=== PATIENT | female | born 1965 ===

== ENCOUNTER → 2023-07-06 | Outpatient (CLI) | payer BC ==
[~2023-07-06] MED LIST: PERCOCET 325 MG1 TA2 PO
[2023-07-06 16:40] LABS: HEMOGLOBIN 11.8 g/dl (12.5-16.0); MEAN CELL VOLUME 95 fl (80.0-100.0); MEAN CORPUSCULAR HEMOGLOBIN 33 pg (27-31); MEAN CORPUSCULAR HGB CONC 35 g/dl (33.0-37.0); MEAN PLATELET VOLUME 8.2 fl (7.4-10.4); PLATELET COUNT 345 K/mm3 (130-400); RED BLOOD COUNT 3.62 M/mm3 (4.10-5.30); REDCELL DISTRIBUTION WIDTH-CV 14.6 % (11.5-14.5)
[2023-07-06 16:44] LABS: HEMATOCRIT 34.2 % (37.0-47.0)
== END ==
LOC: COL.LAB 16:08
PROVIDERS: Orthopaedic Surgery Sports Medicine
DX: M79.662 Pain in left lower leg (principal)